=== PATIENT | male | born 1970 | race Caucasian/White ===

== ENCOUNTER 2019-12-08 11:38 | Outpatient (CLI) | payer MEDICAID, SELFPAY ==
--- NOTE | 2019-12-08 11:57 | MR_ITS ---
WS: [id number] MRI BRAIN WITH AND WITHOUT CONTRAST HISTORY: MENINGIOMA SURVEILLANCE COMPARISON: 02/08/2018 and 05/14/2015 TECHNIQUE: Multiplanar imaging performed through the brain with Prohance 17 ml's IV. No acute infarcts are seen. Clemens-white matter differentiation is well preserved. No susceptibility artifacts or prior lacunar infarcts. Ventricles and extra-axial spaces are normal. Clivus and pituitary gland are normal. Visualized posterior fossa and brainstem are also normal. Moderately enhancing dural based mass towards the RIGHT frontal vertex is again identified measuring 19 x 10 x 14 mm. Consistent with a meningioma. No significant increase in size since 02/08/2018. Since 05/14/2015 this mass has slightly increased in size. There is very slight mass effect and encroachment upon the cortex of the frontal lobe. Dural venous sinuses are normal. Paranasal sinuses: Mild mucoperiosteal thickening in the posterior RIGHT ethmoid air cells. Improved aeration in the RIGHT maxillary sinus since the most recent exam. Mastoid air cells: Normal. Calvarium and scalp: Calvarium is intact. There is a scalp mass over the posterior LEFT parietal binh on which is been previously described measuring 9 x 8 20 mm. Probably a benign hemangioma or sebaceou s cyst. MR/MR head wo/w con [id number] IMPRESSION: 1. No significant increase in size of the RIGHT posterior frontal meningioma m easuring 19 x 10 x 14 mm. There has been a slight increase in size since 05/14/19 16, prior measurements were 12 x 16 x 7 mm. 2. Improved RIGHT maxillary sinusitis.
== END 2019-12-08 11:39 | disposition home or self-care (01) ==
LOC: RADWPI 11:44
PROVIDERS: PCP Family Medicine; Visit Provider Family Medicine
DX: D32.9 Benign neoplasm of meninges, unspecified (principal)
CPT/HCPCS: 70553; A9579

== ENCOUNTER → 2019-12-24 08:41 | Outpatient (BNVA) | payer MEDICAID, SELFPAY | PROVIDERS: PCP Family Medicine; Referring Provider Family Medicine; Visit Provider Internal Medicine | DX: E10.42 Type 1 diabetes mellitus with diabetic polyneuropathy (principal); E10.649 Type 1 diabetes mellitus with hypoglycemia without coma; Z79.4 Long term (current) use of insulin; E78.2 Mixed hyperlipidemia; I10 Essential (primary) hypertension | CPT/HCPCS: 99204 ==

== ENCOUNTER 2020-01-07 13:40 | Outpatient (CLI) | payer MEDICAID, SELFPAY ==
[2020-01-07 14:46] LABS: Estmated Average Glucose 183
== END 2020-01-07 13:41 | disposition home or self-care (01) ==
LOC: LAB 13:42
PROVIDERS: PCP Family Medicine; Visit Provider Internal Medicine
DX: E10.9 Type 1 diabetes mellitus without complications (principal)
CPT/HCPCS: 36415; 83036

== ENCOUNTER → 2020-04-06 08:47 | Outpatient (BNVA) | payer MEDICAID, SELFPAY | PROVIDERS: PCP Family Medicine; Visit Provider Internal Medicine | DX: E10.42 Type 1 diabetes mellitus with diabetic polyneuropathy (principal); E10.649 Type 1 diabetes mellitus with hypoglycemia without coma; Z79.4 Long term (current) use of insulin; E66.3 Overweight; E78.2 Mixed hyperlipidemia | CPT/HCPCS: 99215 ==

== ENCOUNTER 2020-04-07 09:50 | Outpatient (CLI) | payer MEDICAID, SELFPAY ==
[2020-04-07 10:47] LABS: Chol HDL Ratio 5.81 mg/dL (1.0-5.00); Cholesterol 244 mg/dL (0-200); HDL Cholesterol 42 mg/dL (60-100); LDL Cholesterol Calculated 177 mg/dL (50-129); LDL HDL Ratio 4.21 RATIO (0.00-3.22); Triglycerides 124 mg/dL (0-150)
[2020-04-07 12:53] LABS: Estmated Average Glucose 186; Hemoglobin A1C 8.1 % (4.0-6.0)
== END 2020-04-07 09:51 | disposition home or self-care (01) ==
PROVIDERS: PCP Family Medicine; Visit Provider Internal Medicine
DX: E78.2 Mixed hyperlipidemia (principal); E10.649 Type 1 diabetes mellitus with hypoglycemia without coma
CPT/HCPCS: 36415; 80061; 83036

== ENCOUNTER → 2020-07-13 08:36 | Outpatient (BNVA) | payer MEDICAID, SELFPAY | PROVIDERS: PCP Family Medicine; Referring Provider Family Medicine; Visit Provider Orthopaedic Surgery | DX: M19.011 Primary osteoarthritis, right shoulder (principal); M25.511 Pain in right shoulder | CPT/HCPCS: 73030 ==

== ENCOUNTER → 2020-09-01 14:02 | Outpatient (BNVA) | payer MEDICAID, SELFPAY | PROVIDERS: PCP Family Medicine; Visit Provider Specialist | DX: G56.21 Lesion of ulnar nerve, right upper limb (principal); F17.200 Nicotine dependence, unspecified, uncomplicated | CPT/HCPCS: 95908 ==

== ENCOUNTER → 2020-09-07 09:00 | Outpatient (BNVA) | payer MEDICAID, SELFPAY | PROVIDERS: PCP Family Medicine; Visit Provider Family Medicine | DX: G56.21 Lesion of ulnar nerve, right upper limb (principal); R07.81 Pleurodynia; K21.9 Gastro-esophageal reflux disease without esophagitis; E03.9 Hypothyroidism, unspecified; J41.0 Simple chronic bronchitis; J44.9 Chronic obstructive pulmonary disease, unspecified; E10.649 Type 1 diabetes mellitus with hypoglycemia without coma; I10 Essential (primary) hypertension; G47.00 Insomnia, unspecified; K21.00 Gastro-esophageal reflux disease with esophagitis, without bleeding; I73.9 Peripheral vascular disease, unspecified | CPT/HCPCS: 80053; 83036; 84439; 84443; 84481; 85025 ==

== ENCOUNTER 2020-09-09 08:07 | Outpatient (CLI) | payer MEDICAID, SELFPAY ==
--- NOTE | 2020-09-09 08:15 | XRR_ITS ---
PROCEDURE INFORMATION: Exam: XR Right Ribs Exam date and time: 09/09/2020 8:15 AM Age: 50 years old Clinical indication: Chest wall pain; Right; Patient HX: PT states he is having RT posterior rib pain, shoulder pain, and RT side of neck. PT states he has a knot under the RT arm in the arm pit. PT states this has been ongoing for 1.5 years but continually getting worse. ; Additional info: R07.81 - pleurodynia TECHNIQUE: Imaging protocol: XR Right ribs. Views: 2 views. COMPARISON: CR XR chest 2V* [id number] 09/09/2020 8:31 AM FINDINGS: Bones/joints: Normal. Soft tissues: Normal. XR/XR ribs RT 2V* [id number] IMPRESSION: No acute findings.
--- NOTE | 2020-09-09 08:15 | XR_ITS ---
WS: [id number] CHEST 2 VIEWS HISTORY: R07.81 - Pleurodynia COMPARISON: None available. Lungs: Clear with no abnormality. No pleural effusion or pneumothorax. Cardiac size: Normal. Mediastinum/Aorta: Normal mediastinum. Bones: Normal. XR/XR chest 2V* [id number] IMPRESSION: Normal chest.
--- NOTE | 2020-09-09 08:15 | XRR_ITS ---
PROCEDURE INFORMATION: Exam: XR Thoracic Spine Exam date and time: 09/09/2020 8:15 AM Age: 50 years old Clinical indication: Pain in thoracic spine; Patient HX: PT states he is having RT posterior rib pain, shoulder pain, and RT side of neck. PT states he has a knot under the RT arm in the arm pit. PT states this has been ongoing for 1.5 years but continually getting worse. ; Additional info: R07.81 - pleurodynia TECHNIQUE: Imaging protocol: XR of the thoracic spine. Views: 3 views. COMPARISON: No relevant prior studies available. FINDINGS: Bones/joints: Osteopenia and degenerative change. No acute bony injury or malalignment. Soft tissues: Unremarkable appearance of the paraspinous soft tissues. XR/XR thoracic spine 3V* [id number] IMPRESSION: Osteopenia and degenerative change.
--- NOTE | 2020-09-09 08:19 | XRR_ITS ---
PROCEDURE INFORMATION: Exam: XR Cervical Spine Exam date and time: 09/09/2020 8:19 AM Age: 50 years old Clinical indication: Neck pain; Patient HX: PT states he is having RT posterior rib pain, shoulder pain, and RT side of neck. PT states he has a knot under the RT arm in the arm pit. PT states this has been ongoing for 1.5 years but continually getting worse. ; Additional info: M54.12 - radiculopathy, cervical region TECHNIQUE: Imaging protocol: XR of the cervical spine. Views: 2 or 3 views. COMPARISON: CR XR thoracic spine 3V* [id number] 09/09/2020 8:24 AM FINDINGS: Bones/joints: No spine curvature seen. There is straightening of the normal cervical lordosis, with trace retrolisthesis of C5. No fracture identified. Vertebral body heights are well maintained. There is multilevel degenerative changes, manifested by intervertebral disc space narrowing, endplate osteophytes and facet joint arthrosis, involving mainly C5-C6. Soft tissues: Unremarkable. XR/XR cervical spine 3V* [id number] IMPRESSION: 1. No acute injury. 2. Degenerative changes of the cervical spine, involving mainly C5-C6.
== END 2020-09-09 08:08 | disposition home or self-care (01) ==
PROVIDERS: PCP Family Medicine; Visit Provider Family Medicine
DX: M54.12 Radiculopathy, cervical region (principal); R07.81 Pleurodynia; M85.88 Other specified disorders of bone density and structure, other site
CPT/HCPCS: 71046; 71100; 72040; 72072

== ENCOUNTER 2020-10-06 15:23 | Outpatient (CLI) | payer MEDICAID, SELFPAY ==
--- NOTE | 2020-10-06 16:00 | MR_ITS ---
WS: [id number] MRI CERVICAL SPINE NONCONTRAST HISTORY: M54.12 - Radiculopathy, cervical region COMPARISON: None available. Technique: Multiplanar, multisequence noncontrast imaging of the cervical spine. Straightening of the normal cervical lordosis and reversal at C5. Advanced degenerative disc disease and disc space narrowing at C5-6. Otherwise mild desiccation throughout. Abnormal signal within the cervical cord at the C5-6 level. Increased T2 signal in the RIGHT and LEFT lateral aspects of the cord. Normal signal in the central cord. The abnormal signal extends over a l ength of 4 mm and a width of 5 mm in each lateral half of the cord. Craniocervical junction, C1 and C2 relationship, odontoid process and soft tissues are normal. C2-C3: Normal. C3-C4: Normal. C4-C5: Diffuse annular disc bulging with osteophytic ridging. Disc and osteophyte encroachment upon t he ventral thecal sac. More focal disc osteophyte LEFT paracentral deforming the LEFT lateral thecal sac. There is moderate central and bilateral foraminal stenosis and mild facet arthritis. C5-C6: Diffuse annular disc bulging and osteophytic ridging. Near complete effacement of CSF with sev ere central and bilateral foraminal stenosis. Exiting nerve roots are being displaced posteriorly. Mi ld facet arthritis. C6-C7: Diffuse annular disc bulging and vertebral body osteophytes. Mild central and LEFT foraminal n arrowing. C7-T1: Normal. Paraspinal soft tissue are normal. MR/MR cervical spin wo con* [id number] IMPRESSION: 1. Reversal of the normal cervical lordosis centered at C5. 2. Focal areas of myelomalacia in the lateral cervical cord at C5-6 with spari ng of the central cord. Areas of myelomalacia measure 4 x 5 mm. 3. Moderate central and bilateral foraminal stenosis at C4-5 with a more focal LEFT paracentral disc osteophyte complex. 4. Severe central and bilateral foraminal stenosis at C5-6 due to combination of osteophytes, disc disease and the vertebral body.
--- NOTE | 2020-10-06 16:45 | MR_ITS ---
WS: [id number] MRI THORACIC SPINE noncontrast. HISTORY: M54.12 - Radiculopathy, cervical region COMPARISON: None available. TECHNIQUE: Multiplanar sequences are performed in sagittal and axial planes. Normal thoracic alignment. No marrow edema or fracture. Signal within the thoracic cord is normal. Mi ld disc desiccation throughout. T1-2: Normal. T2-3: Normal. T3-4: Normal. T4-5: Normal. T5-6: Normal. T6-7: Shallow LEFT paracentral disc protrusion without cord contact. Mild facet arthritis. Very mild narrowing of the LEFT foramen. T7-8: Shallow central disc protrusion without stenosis or cord contact. T8-9: Small central disc protrusion and mild foraminal narrowing due to facet arthritis. T9-10: Mild foraminal narrowing and a central disc protrusion. Mild foraminal narrowing. T10-11: Moderate LEFT paracentral disc protrusion and facet arthritis. Mild LEFT foraminal narrowing . T11-12: Bilateral moderate facet joint arthritis encroaching into the foramen. Mild to moderate fora viktoriya narrowing. Paravertebral soft tissues are normal. MR/MR thoracic spin wo con* [id number] IMPRESSION: 1. No high-grade central or foraminal stenosis. 2. Mild to moderate bilateral foraminal stenosis at T11-12. 3. Moderate LEFT paracentral disc protrusion at T10-11. 4. Additional small disc protrusions as above without cord contact.
== END 2020-10-06 15:24 | disposition home or self-care (01) ==
LOC: RADSHAW 15:25
PROVIDERS: PCP Family Medicine; Visit Provider Family Medicine
DX: M54.12 Radiculopathy, cervical region (principal); R07.81 Pleurodynia; M48.04 Spinal stenosis, thoracic region; M51.24 Other intervertebral disc displacement, thoracic region; M48.02 Spinal stenosis, cervical region; M25.78 Osteophyte, vertebrae; G95.89 Other specified diseases of spinal cord
CPT/HCPCS: 72141; 72146

== ENCOUNTER 2020-10-12 14:04 | Outpatient (CLI) | payer MEDICAID, SELFPAY ==
--- NOTE | 2020-10-12 14:10 | CT_ITS ---
WS: [id number] LDCT LUNG CANCER SCREENING TECHNIQUE: Noncontrast CT of the chest with coronal and sagittal reformatted images. CLINICAL INFORMATION: Z12.2 - Encounter for screening for malignant neoplasm of... COMPARISON: CT 7 16,015 DLP: 60.92 mGy.cm DIvol: 1.[address] scans at [facility] use at least one of these dose optimization techniques: automat ed exposure control; mA and/or kV adjustment per patient size (includes targeted exams where dose is matched to clinical indication); or iterative reconstruction. FINDINGS: No acute pulmonary infiltrates. No focal pneumonia or pleural fluid. Slight bibasilar atelectasis. No mediastinal or hilar lymphadenopathy. Adrenal glands are normal. Splenic artery calcification. Sligh tly nodular thickening along the left fissure. Noncalcified subpleural nodule right upper lobe measur ing 3 mm. Tiny noncalcified subpleural nodule right lower lobe measuring [address]/CT lung screening [id number] IMPRESSION: LUNG-RADS: 2-Benign Appearance or Behavior FOLLOW UP: 12 Month: Continue annual screening with LDCT
== END 2020-10-12 14:05 | disposition home or self-care (01) ==
LOC: RAD 14:06
PROVIDERS: PCP Family Medicine; Visit Provider Family Medicine
DX: Z12.2 Encounter for screening for malignant neoplasm of respiratory organs (principal); Z72.0 Tobacco use; J98.11 Atelectasis; R91.1 Solitary pulmonary nodule
CPT/HCPCS: 71271

== ENCOUNTER 2020-10-29 07:27 | Outpatient (CLI) | payer MEDICAID, SELFPAY ==
[2020-10-29 07:46] VITALS: BMI 28.6
--- NOTE | 2020-10-29 07:47 | NMCV_ITS ---
NM fallon perf SPECT r/s* [id number] Ajay Dickinson Age: 50 Gender: M : 1970 Exam Date: 10/29/2020 08:42 Ordering Phys: Eliezer Jade MD ([email or web address]) Technologist: RADHA Gutierrez Exam Location: [facility] Indications: ABNORMAL HEART BEAT STRESS TEST [facility] IMAGE PROTOCOL Rest/Stress 1 Lexiscan Day Radiopharmaceutical Dose (mCi) Administration Site Administered by Rest: Tc-99m 10.9 IV RADHA Gutierrez Sestamibi Stress:Tc-99m 32.7 IV RADHA Gutierrez Sestamibi Rest: 29-Oct-2020 60 Discovery 630 Stress: 29-Oct-2020 30 Discovery 630 0.4mg Lexiscan. Images obtained in supine and prone position. SPECT RESULTS Technical Quality: Excellent Raw Data Analysis: Normal Image Corrections: No attenuation or motion correction applied Summed Stress Score: 8 Summed Rest Score: 8 Summed Difference Score: 3 PERFUSION FINDINGS Large area of fixed shelia-infarct noted in basal to distal inferior inferoseptal wall suggestive of old myocardial infarction versus scarring. FUNCTIONAL RESULTS (calculated via Gated SPECT) Stress Image LV EF (%): 49 Stress EDV (mL):138 TID: 1.11 Stress ESV (mL):70 Rest Image LV EF (%): 49 FUNCTIONAL FINDINGS: Mid to distal inferior wall akinesis IMPRESSIONS Large area of old myocardial infarction versus scarring noted in inferior and inferoseptal wall suggestive of possible lesion in the RCA territory. This study is negative for ischemia. EKG segment will be documented separately. Eliezer Jade MD (Electronically Signed) Final Date: 29 October 2020 15:20 S
--- NOTE | 2020-10-29 07:47 | ECG_ITS ---
[facility] Test Date: 2020-10-29 Pat Name: Ajay Dickinson Department: Room: Gender: Male Workshop Manager: : 1970 Requested By: Eliezer Jade Order Number: [id number] Sal MD: ELIEZER JADE Interpretive Statements NAME OF STUDY: LEXISCAN SESTAMIBI STRESS TEST INDICATION: Chest Pain, NOTE: Please note that this is the electrocardiogram portion of the Lexiscan/Sestamibi stress test. The perfusion scan will be documented separately. DATA: Baseline heart rate was 67 beats per minute. Baseline blood pressure was 131/78 millimeters of mercury. Target heart rate was 170. Maximum heart rate achieved was 95. which was 55 % of the predicted target heart rate. Maximum blood pressure was 138/78 millimeters of mercury. The reason for ending the test was completion of the protocol. The patient did not experience any symptoms. ELECTROCARDIOGRAM: BASELINE: Sinus rhythm. Normal axis. Possible old inferior wall myocardial infarction, otherwise no ST-T changes suggestive of ischemia noted. No arrhythmia noted. EXERCISE: After Lexiscan injection, no ST-T changes suggestive of ischemic noted. No arrhythmia noted. CONCLUSION: Please note due to baseline abnormality of the EKG specificity and sensitivity of the EKG portion of LexiScan MIBI stress test will be low 1. EKG not suggestive of ischemia 2. Lexiscan injection unremarkable. 3. Perfusion scan will be documented separately. Electronically Signed On 10-29-2020 15:47:07 CDT by LEIEZER JADE [id number]
[2020-10-29] MEDS: regadenoson 0.4 Mg/5 ml Syringe IVP (09:16)
[2020-10-29 09:35] VITALS: BP 128/72; PULSE 76
== END 2020-10-29 07:28 | disposition home or self-care (01) ==
LOC: CDL 07:28
PROVIDERS: PCP Family Medicine; Visit Provider Internal Medicine Cardiovascular Disease
DX: R07.9 Chest pain, unspecified (principal); R06.02 Shortness of breath; R94.39 Abnormal result of other cardiovascular function study
CPT/HCPCS: 78452; 93017; A9500; J2785

== ENCOUNTER → 2020-11-01 09:13 | Outpatient (BNVA) | payer MEDICAID, SELFPAY | PROVIDERS: PCP Family Medicine; Visit Provider Family Medicine | DX: M54.12 Radiculopathy, cervical region (principal); E03.9 Hypothyroidism, unspecified; R53.83 Other fatigue; E10.649 Type 1 diabetes mellitus with hypoglycemia without coma; Z79.4 Long term (current) use of insulin; R07.81 Pleurodynia; R53.82 Chronic fatigue, unspecified; I73.9 Peripheral vascular disease, unspecified; I25.119 Atherosclerotic heart disease of native coronary artery with unspecified angina pectoris | CPT/HCPCS: 82607; 82652; 84443; 85651; 86140; 86376; 86800 ==

== ENCOUNTER 2020-11-03 10:05 | Outpatient (CLI) | payer MEDICAID, SELFPAY ==
--- NOTE | 2020-11-03 10:11 | USCV_ITS ---
Ajay Dickinson Age: 50 Gender: M : 1970 Exam Date: 11/03/2020 10:45 Ordering Phys: Eliezer Jade MD ([email or web address]) Technologist: Freedom Urbano [place] [facility] [place]: RLE PAIN Risk Factors: Previous Vascular Surgery: Right BP: 125.00 / 70.00 Left BP: / RIGHT LEFT PSV PSV (cm/s) (cm/s) Waveform Waveform Triphasic 84.7 Subclavian Proximal Triphasic 79.2 Subclavian Distal Triphasic 87.0 Axillary Triphasic 91.7 Brachial Proximal Triphasic 81.6 Brachial Mid Triphasic 59.3 Radial Proximal Triphasic 59.8 Radial at Wrist Triphasic 118.3 Ulnar Proximal Triphasic 90.7 Ulnar at Wrist 1.0 Radial/Brachial Index FINDINGS Normal Doppler waveforms on the right side Normal Doppler flow velocities Normal resting RBI CONCLUSIONS No evidence of arterial obstruction in the arteries mentioned above Dr Hamzah Miranda MD [facility] (Electronically Signed) Final Date: 03 November 2020 23:04 S
--- NOTE | 2020-11-03 10:11 | USCV_ITS ---
Ajay Dickinson Age: 50 Gender: M : 1970 Exam Date: 11/03/2020 10:05 Ordering Phys: Eliezer Jade MD ([email or web address]) Technologist: Freedom Urbano Exam Location: [facility] [place] Indication: BLE PAIN RIGHT LEFT Brachial 121.00 mmHg Brachial 123.00 mmHg Pressure (mmHg) Waveform Pressure (mmHg) Waveform 109.00 High Thigh 126.00 107.00 Below Knee 118.00 109.00 REMOTE SENSING ANALYST 5.00 110.00 DPA 123.00 0.89 Ankle/Brachial Index 1.00 65.00 Pre-Exercise Toe Pressure 122.00 0.53 Pre-Exercise Toe/Brachial Index 0.99 FINDINGS Normal resting LENORA and TBI on the left side. Abnormal resting LENORA of 0.04 with respect to the posterior tibial artery on the left side. Slightly diminished resting LENORA and TBI on the right side. PVR waveforms showing loss of dicrotic notch bilaterally CONCLUSIONS Features of mild peripheral artery disease on the right side. Features of severe disease in the distribution of the posterior tibial artery on the left side Normal resting LENORA and TBI on the left side. Dr Hamzah Miranda MD [facility] (Electronically Signed) Final Date: 04 November 2020 15:33 S
== END 2020-11-03 10:06 | disposition home or self-care (01) ==
LOC: RAD 10:07
PROVIDERS: PCP Family Medicine; Visit Provider Internal Medicine Cardiovascular Disease
DX: I73.9 Peripheral vascular disease, unspecified (principal); M79.604 Pain in right leg; M79.605 Pain in left leg
CPT/HCPCS: 93923; 93931

== ENCOUNTER → 2020-11-08 09:19 | Outpatient (BNVA) | payer MEDICAID, SELFPAY | PROVIDERS: PCP Family Medicine; Referring Provider Family Medicine; Visit Provider Anesthesiology Pain Medicine | DX: G89.29 Other chronic pain (principal); M54.9 Dorsalgia, unspecified; M50.90 Cervical disc disorder, unspecified, unspecified cervical region; M47.812 Spondylosis without myelopathy or radiculopathy, cervical region; F17.210 Nicotine dependence, cigarettes, uncomplicated; M25.511 Pain in right shoulder; M79.601 Pain in right arm | CPT/HCPCS: 99205 ==

== ENCOUNTER 2020-11-18 12:54 | Outpatient (CLI) | payer MEDICAID, SELFPAY ==
--- NOTE | 2020-11-18 13:30 | USCV_ITS ---
Ajay Dickinson Age: 50 Gender: M : 1970 Exam Date: 11/18/2020 13:25 Ordering Phys: Eliezer Jade MD ([email or web address]) Technologist: Megan Farias [place] [facility] [place]: NECK PAIN Risk Factors: Previous Vascular Surgery: Right Brachial BP: / Left Brachial BP: / Right Left Velocity (cm/s) Spectral Plaque Velocity (cm/s) Spectral Plaque Syst/Diast Broadening Syst/Diast Broadening 141.10/24.30 Prox CCA 106.00/ 23.10 118.00/24.30 Mid CCA 103.40/ 25.60 81.20/ 19.70 Distal CCA 75.20 / 20.50 74.10/ 23.70 Prox ICA 49.70 / 17.10 77.20/ 27.50 Mid ICA 75.20 / 29.10 72.10/ 24.00 Distal ICA 62.20 / 20.50 134.00 ECA 108.10 0.55 ICA/CCA 0.71 Antegrade Vertebral Antegrade 34.80/ 11.80 cm/s 42.70/ 13.20 cm/s Tri Subclavian Tri 169.1 144.6 0 0 FINDINGS Comparison: none available. No significant elevation of systolic or diastolic velocities. Waveforms are normal. No significant amount of calcified plaque or intimal thickening identified. CONCLUSIONS Normal carotid doppler ultrasound. Dr. Linda Nathan DO (Electronically Signed) Final Date: 18 November 2020 14:30 S
== END 2020-11-18 12:55 | disposition home or self-care (01) ==
LOC: RAD 12:55
PROVIDERS: PCP Family Medicine; Visit Provider Internal Medicine Cardiovascular Disease
DX: I65.29 Occlusion and stenosis of unspecified carotid artery (principal); M54.2 Cervicalgia
CPT/HCPCS: 93880

== ENCOUNTER → 2020-12-01 08:31 | Outpatient (BNVA) | payer MEDICAID, SELFPAY | PROVIDERS: PCP Family Medicine; Referring Provider Family Medicine; Visit Provider Specialist | DX: G56.21 Lesion of ulnar nerve, right upper limb (principal); M50.00 Cervical disc disorder with myelopathy, unspecified cervical region; F17.210 Nicotine dependence, cigarettes, uncomplicated | CPT/HCPCS: 95860; 99202 ==

== ENCOUNTER → 2020-12-13 08:49 | Outpatient (BNVA) | payer MEDICAID, SELFPAY | PROVIDERS: PCP Family Medicine; Visit Provider Orthopaedic Surgery | DX: Z01.818 Encounter for other preprocedural examination (principal); Z20.822 Contact with and (suspected) exposure to COVID-19 | CPT/HCPCS: 87635 ==

== ENCOUNTER 2020-12-17 05:57 | Day surgery (SDC) | payer MEDICAID, SELFPAY ==
[2020-12-10 13:56] VITALS: BMI 27.8
--- NOTE | 2020-12-10 14:00 | ECG_ITS ---
[facility] Test Date: 2020-12-10 Pat Name: Ajay Dickinson Department: Room: Gender: Male Animal Keeper: : 1970 Requested By: Fausto Chilel Order Number: [id number] Reading MD: QUIQUE MITCHELL Measurements Intervals Jolon Rate: 72 P: 26 NV: 162 QRS: 35 QRSD: 98 T: 47 QT: 369 QTc: 405 Interpretive Statements SINUS RHYTHM INFERIOR MYOCARDIAL INFARCTION , PROBABLY OLD [40+ ms Q WAVE AND/OR ST/T ABNORMALITY IN II/aVF] No previous ECG available for comparison Electronically Signed On 12-11-2020 0:02:55 CDT by QUIQUE MITCHELL [id number]
[2020-12-10 14:21] LABS: Basophils % 0.5 %; Eosinophils # 0.4 10^3/uL (0.0-0.8); Eosinophils % 4.6 %; Hematocrit 45.9 % (42.0-52.0); Hemoglobin 15.5 g/dL (11.7-16.6); Lymphocytes # 3.1 10^3/uL (0.8-4.8); Lymphocytes % 34.8 %; Mean Corpuscular HGB Conc 33.8 g/dL (30.0-36.0); Mean Corpuscular Hemoglobin 31.1 pg (28.0-34.0); Mean Corpuscular Volume 92.2 fl (80-94); Mean Platelet Volume 9.3 fL (7.4-10.4); Monocytes # 0.6 10^3/uL (0.2-0.9); Monocytes % 7.1 %; Neutrophils # 4.63 10^3/uL (1.8-7.7); Neutrophils % 52.8 %; Nucleated Red Blood Cells % 0 %; Platelet Count 227 10^3/cmm (130-400); Red Blood Count 4.98 10^6/uL (4.1-5.3); Red Cell Distribution Width 12.6 % (12.1-15.1); White Blood Count 8.8 10^3/uL (4.0-10.0)
--- NOTE | 2020-12-10 14:28 | P.ANESASSM_ITS ---
Pre-Anesthetic Assessment Pre-Anesthetic Assessment: Height/Weight: Height 1.83 m Weight 92.986 kg Proposed Procedure: Operation Date: 12/17/20 07:00 Proposed Procedures p Anterior Cervical Discectomy & Fusion C4/5 C5/6 62976 79105 09783(x2) 18578 M54.2(Not Applicable) - Fausto See DO Social: Social History: Tobacco and No alcohol Packs per day: 1 Exam: Pre-Anes Outpt Exam: alert and oriented x 3 Airway: Submandibular: WNL Cervical ROM: WNL MP: 1 Dentition: False History/ROS: No significant history except as noted Pulmonary: Pulmonary: None reported CV/HEM: CV/HEM: None reported : : None reported Hepatic: Hepatic: None reported GI: GI: GERD Metabolic: Metabolic: DM, Hyperlipidemia and Thyroid ([place]) Neuropsych: Neuropsych: None reported Anesthetic Plan: ASA status: 3 Anesthesia: Anesthesia Evaluation and General Risk of > 500 ml blood loss (7ml/kg in children): No PFSH Anesthesia PFSH: Medical History COPD (chronic obstructive pulmonary disease) Diabetes type I GERD (gastroesophageal reflux disease) Hyperlipidemia Hypertension Hypothyroidism Meningioma PVD (peripheral vascular disease) Surgical History History of cardiac cath Family History Grandmother Diabetes Social History Alcohol intake: current Alcohol intake frequency: holidays/special occasions only Alcohol type: beer Lives independently: No Household members: spouse Housing: House Marital status: Number of children: 1 Highest education level completed: GED or Equivalent service: No Current occupational status: unemployed History of recent travel: No Data Anesthesia CBC & Chem 7: 12/10/20 14:00 12/10/20 14:00 Other Labs: Laboratory Results - last 48 hr 12/10/20 14:00 WBC 8.8 RBC 4.98 Hgb 15.5 Hct 45.9 MCV 92.2 MCH 31.1 MCHC 33.8 RDW 12.6 Plt Count 227 MPV 9.3 Neut % (Auto) 52.8 Lymph % (Auto) 34.8 [place] % (Auto) 7.1 Eos % (Auto) 4.6 Baso % (Auto) 0.5 Neut # (Auto) 4.63 Lymph # (Auto) 3.1 [place] # (Auto) 0.6 Eos # (Auto) 0.4 Baso # (Auto) 0.0 Nucleated RBC % (auto) 0 Nucleated RBCs # 0.0 Cardiac Studies: No Data to Display
[2020-12-10 14:44] LABS: Anion Gap 13.4 (5-19); Blood Urea Nitrogen 7 mg/dL (6-20); Calcium 9.1 mg/dL (8.5-10.5); Carbon Dioxide 26 mmol/L (22-29); Chloride 103 mmol/L (98-107); Glomerular Filtration Rate 142.6 mL/min (90-130); Glucose 210 mg/dL (65-115); Osmolality Calculated 290 mOsm/kg (285-295); Potassium 4.4 mmol/L (3.5-5.1); Sodium 138 mmol/L (136-145)
[2020-12-17] VITALS (16 sets, daily range): BP systolic 102–149; BP diastolic 60–92; PULSE 71–96; RESP 12–20; TEMP 36.1–37.1; O2SAT 92–99
--- NOTE | 2020-12-17 | SCC_ITS ---
Procedure Done: 1. Anterior diskectomy C5/6 2. Anterior discectomy C4/5 3. Insertion of cage C5/6 4. Insertion of Cage C4/5 5. Instrumentation with anterior plate from C4-C6 6. Use of allograft 23.8 seconds of fluoroscopic guidance, for a cumulative dose of 0.94 mGy, was provided to Dr. See by the radiology department. C-arm images of the cervical spine were saved for the patient's permanent record. IRAIDAD
--- NOTE | 2020-12-17 | XR_ITS ---
WS: [id number] C-arm fluoroscopy for anterior cervical disc fusion, 12/17/2020 Clinical Data: acdf Comparison: None. Findings: An anterior cervical disc fusion at C4-C6 with disc spacers at C4-C5 and C5-C6. XR/XR cervical spine 3V* [id number] Impression: Anterior cervical disc fusion at C4-C6.
[2020-12-17] MEDS: sodium chloride 0.9% 1,000 ML 30 ML IV (06:36)
[2020-12-17 06:38] LABS: Glucose Point of Care 187 mg/dL (70-110)
--- NOTE | 2020-12-17 06:40 | P.ANESUD_ITS ---
Pre-Anesthetic Update Pre-Anesthetic Assessment: Date of Surgery/Procedure: 12/17/20 Preop Bettye gnosis: Cervical Radiculopathy w DDD c spine Proposed Procedure: Operation Date: 12/17/20 07:15 Proposed Procedures p Anterior Cervical Discectomy & Fusion C4/5 C5/6 88500 23244 60982(x2) 54131 M54.2(Not Applicable) - Fausto H Mayi, DO Any changes to Pre-Anesthetic Assessment?: No Last Intake: Intake Last Liquid Date 12/16/20 Last Liquid Time 21:00 Last Solid Date 12/16/20 Last Solid Time 18:00 Labs Last 48hrs: Laboratory Results - last 48 hr 12/17/20 06:32 POC Glucose 187 H Vitals: Temperature 98.7 F 12/17/20 06:11 Temperature Source Temporal Artery S can 12/17/20 06:11 Pulse Rate 71 12/17/20 06:11 Pulse Rhythm 12/17/20 06:38 Respiratory Rate 16 12/17/20 06:11 Blood Pressure 149/92 12/17/20 06:11 Blood Pressure Eneida n 111 12/17/20 06:11 Pulse Oximetry 98 12/17/20 06:11 Oxygen Delivery Me thod 12/17/20 06:38 Exam: Pre-Anes Outpt Exam: alert, oriented x 3, clear to auscultation bilaterally and regular rate & rhythm Cardiac Studies: No Data to Display
--- NOTE | 2020-12-17 06:56 | W.PM.OPSUD ---
Surgery/Procedure H&P Update DATE OF PROCEDURE: December 17, 2020 DATE H&P PERFORMED: 12/07/20 H&P UPDATE INFORMATION: I have reviewed H&P completed within last 30 days, I have examined patient prior to procedure and No changes to prior documentation PREOP DIAGNOSIS: Cervical Radiculopathy w DDD c spine PLANNED PROCEDURE: Operation Date: 12/17/20 07:15 Proposed Procedures p Anterior Cervical Discectomy & Fusion C4/5 C5/6 [id number] 32739 79210(p9) 09042 V64.2(Not Applicable) - Fausto See DO
--- NOTE | 2020-12-17 09:09 | P.OP_ITS ---
Operative Report Date of procedure: December 17, 2020 Pre-op Diagnosis: cervical spondylosis with radiculopathy Post-op diagnosis: same Procedure Done: 1. Anterior diskectomy C5/6 2. Anterior discectomy C4/5 3. Insertion of cage C5/6 4. Insertion of Cage C4/5 5. Instrumentation with anterior plate from C4-C6 6. Use of allograft Surgeon: Fausto See Surgical Services Asst: Brett Del Valle Surgical Services Asst: The surgical nurse, Brett Del Valle, [place] was needed for his expertise under the microscope. He was important and necessary throughout the procedure to complete in a safe and timely manner. He assisted with patient positioning prepping and draping tissue retraction suctioning of the operative field protection of the dural sac and tissue closure Anesthesia: General Estimated blood loss (mL): 10 Condition: stable Disposition: PACU Procedure: 1. Anterior diskectomy C5/6 2. Anterior discectomy C4/5 3. Insertion of cage C5/6 4. Insertion of Cage C4/5 5. Instrumentation with anterior plate from C4-C6 6. Use of allograft The patient was taken to the operating room, where he underwent general endotracheal anesthesia without complications. He was then positioned supine on the operating table, and all areas of impingement were well padded. The arms were carefully padded and tucked at his sides. A roll was placed between the shoulder blades.. An x-ray was done to determine the appropriate level for the skin incision. The entire neck was then sterilely prepped and draped in the usual fashion. Neuromonitoring was attached prior to prepping. A transverse skin incision was made and carried down to the platysma muscle. This was then split in line with its fibers. Blunt dissection was carried down medial to the carotid sheath and lateral to the trachea and esophagus until the anterior cervical spine was visualized. A needle was placed into a disc and an x-ray was done to determine its location. The longus colli muscles were then elevated bilaterally with the electrocautery unit. Self-retaining retractors were placed deep to the longus colli muscle. Attention was brought to the level that was confirmed on x-ray. The disk space was then distracted. The microscope was then brought in. A radical anterior discectomies were performed at C4/5. This included complete removal of the anterior annulus, nucleus, and posterior annulus. The posterior longitudinal ligament was removed as were the posterior osteophytes. Foraminotomies were then accomplished bilaterally. This was done using a high speed edda, kerrison rongeurs and curretes Once all of this was accomplished, the curved currette was used to check for any residual compression. The central canal was wide open as were the foramen. A high-speed bur was used to remove the cartilaginous endplates above and below the interspace. Bleeding cancellous bone was exposed. The disc space were measured and appropriate size cage were placed sterilely onto the field. Allograft graft was packed into the cages. The cage was then placed and there was good juxtaposition against the bleeding decorticated surfaces and good distraction of each interspace. Attention was brought to the next interspace. Attention was brought to the level that was confirmed on x-ray. A caspar pin was placed into the C5 vertebrae and the C6 vertebrae. The disk space was then distracted. The microscope was then brought in. A radical anterior discectomies were performed at C5/6. This included complete removal of the anterior annulus, nucleus, and posterior annulus. The posterior longitudinal ligament was removed as were the posterior osteophytes. Foraminotomies were then accomplished bilaterally. This was done using a high speed edda, kerrison rongeurs and curretes Once all of this was accomplished, the curved currette was used to chec k for any residual compression. The central canal was wide open as were the foramen. A high-speed bur was used to remove the cartilaginous endplates above and below the interspace. Bleeding cancellous bone was exposed. The disc space were measured and appropriate size cage were placed sterilely onto the field. Allograft graft was packed into the cages. The cage was then placed and there was good juxtaposition against the bleeding decorticated surfaces and good distraction of each interspace. Attention was brought to the next interspace. The [place] pins were removed. Bone wax was used to prevent any bleeding from occurring at the pin sites. The appropriate size anterior cervical locking plate was chosen and bent into gentle lordosis. One screws were then placed into each of the vertebral bodies at C4, C5 and C6. There was excellent purchase. A final x-ray was done confirming good position of the hardware and Cages. The locking screws were then applied, also with excellent purchase. Following a final copious irrigation, there was good hemostasis and no dural leaks. The carotid pulse was strong. The wounds were then closed in layers using 2-0 Vicryl suture for the platysma muscle, 2-0 Vicryl suture for the subcutaneous tissue, and 4-0 monocryl suture in a subcuticular skin closure. Glue was placed followed by application of a sterile dressing. The drain was hooked to bulb suction. A soft collar was applied. The patient was then carefully returned to the supine position on his hospital bed where he was reversed and extubated and taken to the recovery room having tolerated the procedure well.
[2020-12-17] MEDS: fentaNYL 50 mcg/mL INJ 2mL IVP (09:36)
[2020-12-17] MEDS: HYDROmorphone 1 mg/mL INJ 1 mL 0.25 MG IVP (09:46)
[2020-12-17] MEDS: HYDROcodone-acetaminophen 5-325 mg Tablet 2 TAB PO (10:24)
[2020-12-17] MEDS: HYDROmorphone 1 mg/mL INJ 1 mL 0.5 MG IVP (11:13)
== END 2020-12-17 11:39 | disposition home or self-care (01) ==
PROVIDERS: PCP Family Medicine; Visit Provider Orthopaedic Surgery
PROC: 0RB30ZZ Excision of Cervical Vertebral Disc, Open Approach (ICD-10-PCS; CPT 22551; principal; 2020-12-17 07:15)
DX: M47.892 Other spondylosis, cervical region (principal); G56.21 Lesion of ulnar nerve, right upper limb; M50.00 Cervical disc disorder with myelopathy, unspecified cervical region; M47.22 Other spondylosis with radiculopathy, cervical region; M48.062 Spinal stenosis, lumbar region with neurogenic claudication
CPT/HCPCS: 20930; 22551; 22552; 22845; 22853; 63075; 63076; 36416; 72040; 76000; 80048; 82962; 85025; 96374; C1713; C9359; J0330; J0690; J1100; J1170; J2405; J2704; J3010; J7030; L0174

== ENCOUNTER → 2021-01-10 10:21 | Outpatient (BNVA) | payer MEDICAID, SELFPAY | PROVIDERS: PCP Family Medicine; Visit Provider Internal Medicine | DX: E10.649 Type 1 diabetes mellitus with hypoglycemia without coma (principal); E10.42 Type 1 diabetes mellitus with diabetic polyneuropathy; E03.9 Hypothyroidism, unspecified; E78.2 Mixed hyperlipidemia; E66.3 Overweight; Z79.4 Long term (current) use of insulin; Z68.27 Body mass index [BMI] 27.0-27.9, adult | CPT/HCPCS: 99214 ==

== ENCOUNTER → 2021-01-11 10:05 | Outpatient (BNVA) | payer MEDICAID, SELFPAY | PROVIDERS: PCP Family Medicine; Visit Provider Family Medicine | DX: E03.9 Hypothyroidism, unspecified (principal); I10 Essential (primary) hypertension; E10.649 Type 1 diabetes mellitus with hypoglycemia without coma; J44.9 Chronic obstructive pulmonary disease, unspecified; R42 Dizziness and giddiness; E78.2 Mixed hyperlipidemia | CPT/HCPCS: 80053; 80061; 83036; 83735; 84439; 84443; 84481; 85025 ==

== ENCOUNTER → 2021-02-01 08:21 | Outpatient (BNVA) | payer MEDICAID, SELFPAY | PROVIDERS: PCP Family Medicine; Visit Provider Orthopaedic Surgery | DX: Z48.89 Encounter for other specified surgical aftercare (principal) | CPT/HCPCS: 72040 ==

== ENCOUNTER 2021-02-15 13:40 | Outpatient (CLI) | payer MEDICAID, SELFPAY ==
--- NOTE | 2021-02-15 13:44 | XR_ITS ---
WS: [email or web address] XR tibia fibula LT 2V [id number] REASON FOR EXAM: R22.42 - Localized swelling, mass and lump, left lower limb FINDINGS: No fracture or focal bone lesion. No periosteal reaction or erosive change. No soft tissue lesion identified. XR/XR tibia fibula LT 2V [id number] IMPRESSION: No significant abnormality of the left tibia and fibula.
--- NOTE | 2021-02-15 13:44 | XR_ITS ---
WS: [email or web address] [id number] REASON FOR EXAM: R22.31 - Localized swelling, mass and lump, right upper limb FINDINGS: No fracture or focal bone lesion. No periosteal reaction or erosive change. No focal soft tissue lesion identified. XR/[place] [id number] IMPRESSION: No significant abnormality of the right humerus.
== END 2021-02-15 13:41 | disposition home or self-care (01) ==
LOC: RAD 13:42
PROVIDERS: PCP Family Medicine; Visit Provider Family Medicine
DX: R22.42 Localized swelling, mass and lump, left lower limb (principal); R22.31 Localized swelling, mass and lump, right upper limb
CPT/HCPCS: 73060; 73590

== ENCOUNTER → 2021-02-24 09:38 | Outpatient (BNVA) | payer MEDICAID, SELFPAY | PROVIDERS: PCP Family Medicine; Visit Provider Anesthesiology Pain Medicine | DX: G89.29 Other chronic pain (principal); M25.511 Pain in right shoulder; M79.601 Pain in right arm; M50.90 Cervical disc disorder, unspecified, unspecified cervical region; M47.812 Spondylosis without myelopathy or radiculopathy, cervical region; M51.17 Intervertebral disc disorders with radiculopathy, lumbosacral region; M48.02 Spinal stenosis, cervical region; M47.22 Other spondylosis with radiculopathy, cervical region; G99.2 Myelopathy in diseases classified elsewhere; Z79.891 Long term (current) use of opiate analgesic | CPT/HCPCS: 99214 ==

== ENCOUNTER → 2021-03-15 08:54 | Outpatient (BNVA) | payer MEDICAID, SELFPAY | PROVIDERS: PCP Family Medicine; Visit Provider Orthopaedic Surgery | DX: Z48.89 Encounter for other specified surgical aftercare (principal); M48.02 Spinal stenosis, cervical region; M47.22 Other spondylosis with radiculopathy, cervical region; M50.00 Cervical disc disorder with myelopathy, unspecified cervical region | CPT/HCPCS: 72040 ==

== ENCOUNTER 2021-03-22 14:41 | Outpatient (RCR) | payer MEDICAID, SELFPAY | END 2021-04-04 23:59 | disposition home or self-care (01) | LOC: SPT 14:41 | PROVIDERS: PCP Family Medicine; Referring Provider Orthopaedic Surgery; Visit Provider Orthopaedic Surgery | DX: M48.02 Spinal stenosis, cervical region (principal) | CPT/HCPCS: 97110; 97161; 97530 ==

== ENCOUNTER → 2021-03-24 09:49 | Outpatient (BNVA) | payer MEDICAID, SELFPAY | PROVIDERS: PCP Family Medicine; Visit Provider Anesthesiology Pain Medicine | DX: G89.29 Other chronic pain (principal); M48.02 Spinal stenosis, cervical region; M47.22 Other spondylosis with radiculopathy, cervical region; M50.90 Cervical disc disorder, unspecified, unspecified cervical region; M47.812 Spondylosis without myelopathy or radiculopathy, cervical region; M51.17 Intervertebral disc disorders with radiculopathy, lumbosacral region; G99.2 Myelopathy in diseases classified elsewhere; F17.210 Nicotine dependence, cigarettes, uncomplicated; Z79.891 Long term (current) use of opiate analgesic | CPT/HCPCS: 99214 ==

== ENCOUNTER 2021-04-07 15:35 | Outpatient (CLI) | payer MEDICAID, SELFPAY ==
--- NOTE | 2021-04-07 15:15 | MR_ITS ---
WS: [email or web address] MRI CERVICAL SPINE NONCONTRAST HISTORY: M48.02 - Spinal stenosis, cervical region COMPARISON: 10/06/2020 Technique: Multiplanar, multisequence noncontrast imaging of the cervical spine. Mild straightening of the normal cervical lordosis. Interval anterior cervical fusion at C4-C6. Again noted is slight increased signal within the cervical cord at C5-6 level measuring 5 mm which i s probably an area of myelomalacia. No inferior displacement of cerebellar tonsils. No fracture or ma rrow edema. Craniocervical junction, C1 and C2 relationship, odontoid process and soft tissues are normal. C2-C3: Normal. C3-C4: Normal. C4-C5: Mild osteophytic ridging. Central disc protrusion has resolved. Very minimal central and clifton inal stenosis. C5-C6: Mild osteophytic ridging. Disc and osteophyte encroachment into the thecal sac and foramina. T here is moderate to severe central and bilateral foraminal stenosis. C6-C7: LEFT asymmetric disc bulging extends into the proximal foramen is similar to the prior study. Small disc protrusion is not excluded. These findings are similar to the prior study without high-gra de stenosis. There is also small osteophyte in the LEFT foramen. C7-T1: Normal. Paraspinal soft tissue are normal. MR/MR cervical spin wo con* [id number] IMPRESSION: 1. Interval anterior cervical fusion from C4 to C6. 2. Cervical cord myelomalacia is focal at C5-C6 without progression. 3. Unchanged moderate to severe central and bilateral foraminal stenosis at C5 -6 due to disc and osteophyte disease. 4. Minimal central foraminal stenosis at C4.
== END 2021-04-07 15:36 | disposition home or self-care (01) ==
PROVIDERS: PCP Family Medicine; Visit Provider Orthopaedic Surgery
DX: M48.02 Spinal stenosis, cervical region (principal); M43.22 Fusion of spine, cervical region; G95.89 Other specified diseases of spinal cord
CPT/HCPCS: 72141

== ENCOUNTER → 2021-04-11 10:17 | Outpatient (BNVA) | payer MEDICAID, SELFPAY | PROVIDERS: PCP Family Medicine; Visit Provider Internal Medicine | DX: E10.649 Type 1 diabetes mellitus with hypoglycemia without coma (principal); E10.42 Type 1 diabetes mellitus with diabetic polyneuropathy; E78.2 Mixed hyperlipidemia; E55.9 Vitamin D deficiency, unspecified; E03.9 Hypothyroidism, unspecified; E66.3 Overweight; E65 Localized adiposity; F17.210 Nicotine dependence, cigarettes, uncomplicated; Z68.29 Body mass index [BMI] 29.0-29.9, adult; Z79.4 Long term (current) use of insulin | CPT/HCPCS: 99214 ==

== ENCOUNTER 2021-04-11 11:46 | Outpatient (CLI) | payer MEDICAID, SELFPAY ==
[2021-04-11 12:55] LABS: Estmated Average Glucose 189; Hemoglobin A1C 8.2 % (4.0-6.0)
[2021-04-11 13:27] LABS: 25 Hydroxy Vitamin D 29 ng/mL (30-100); Chol HDL Ratio 2.98 mg/dL (1.0-5.00); Cholesterol 146 mg/dL (0-200); HDL Cholesterol 49 mg/dL (60-100); LDL Cholesterol Calculated 79 mg/dL (50-129); LDL HDL Ratio 1.61 RATIO (0.00-3.22); Triglycerides 88 mg/dL (0-150)
[2021-04-11 13:59] LABS: Free T4 Free Thyroxine 1.58 ng/dL (0.82-1.77)
== END 2021-04-11 11:47 | disposition home or self-care (01) ==
PROVIDERS: PCP Family Medicine; Visit Provider Internal Medicine
DX: E10.649 Type 1 diabetes mellitus with hypoglycemia without coma (principal); E55.9 Vitamin D deficiency, unspecified; E78.2 Mixed hyperlipidemia
CPT/HCPCS: 80061; 82306; 83036; 84439; 84443

== ENCOUNTER 2021-04-12 12:54 | Outpatient (CLI) | payer MEDICAID, SELFPAY ==
--- NOTE | 2021-04-12 | MR_ITS ---
MRI for Radiation Therapy Planning. No images were submitted for evaluation. MTDD
== END 2021-04-12 12:55 | disposition home or self-care (01) ==
PROVIDERS: PCP Family Medicine; Visit Provider Family Medicine
DX: D32.0 Benign neoplasm of cerebral meninges (principal)
CPT/HCPCS: 70551

== ENCOUNTER → 2021-04-14 14:14 | Outpatient (BNVA) | payer MEDICAID, SELFPAY | PROVIDERS: PCP Family Medicine; Visit Provider Anesthesiology Pain Medicine | DX: G89.29 Other chronic pain (principal); M51.17 Intervertebral disc disorders with radiculopathy, lumbosacral region; M48.02 Spinal stenosis, cervical region; M47.22 Other spondylosis with radiculopathy, cervical region; M50.90 Cervical disc disorder, unspecified, unspecified cervical region; M47.812 Spondylosis without myelopathy or radiculopathy, cervical region; M25.511 Pain in right shoulder; M79.601 Pain in right arm; G99.2 Myelopathy in diseases classified elsewhere; F17.210 Nicotine dependence, cigarettes, uncomplicated; Z79.891 Long term (current) use of opiate analgesic | CPT/HCPCS: 99214 ==

== ENCOUNTER → 2021-04-20 15:08 | Outpatient (BNVA) | payer MEDICAID, SELFPAY | PROVIDERS: PCP Family Medicine; Visit Provider Internal Medicine | DX: I73.9 Peripheral vascular disease, unspecified (principal); I10 Essential (primary) hypertension; I25.119 Atherosclerotic heart disease of native coronary artery with unspecified angina pectoris; F17.210 Nicotine dependence, cigarettes, uncomplicated | CPT/HCPCS: 99214; 99215 ==

== ENCOUNTER 2021-04-27 10:31 | Outpatient (CLI) | payer MEDICAID, SELFPAY ==
--- NOTE | 2021-04-27 10:41 | CT_ITS ---
WS: [id number] CT ANGIOGRAPHY OF THE ABDOMINAL AORTA WITH RUNOFF TO THE ANKLES HISTORY: R68.89 - Other general symptoms and signs, right-sided leg pain at catheter. TECHNIQUE: Arterial injection is performed during imaging to evaluate the aorta and runoff vessels to the ankles. MIP and volume rendering imaging has also been performed. All images are reviewed. All C T scans at [facility] use at least one of these dose optimization techniques: automated exposu re control; mA and/or kV adjustment per patient size (includes targeted exams where dose is matched t o clinical indication); or iterative reconstruction. Contrast: Omnipaque 350; 95 mL IV. DLP: 1038.16 mGy.cm COMPARISON: 05/10/2017 Lung bases are clear. No cardiomegaly. Small hiatal hernia. Tricuspid regurgitation into hepatic vein s. Abdominal aorta: Scattered plaque and intimal thickening scattered throughout the aorta. No high-grad e stenosis. Small amount calcium in the celiac axis. Origin of the SMA is intact. 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 Renal arteries are both patent. FLORY is patent. RIGHT lower extremity arterial system: Moderate calcified plaque continues into the RIGHT common, ext ernal and internal iliac arteries. Increasing soft tissue plaque in the external iliac. Small amount of plaque in the femoral artery. The deep profunda and SFA proximally are patent. Increasing plaque a nd intimal thickening throughout the mid to distal SFA. Increasing calcification in the artery and na rrowing of the lumen extending into Justice's canal. High-grade stenosis suspected in the proximal Hun ter's canal with adjacent calcification. Multifocal areas of at least moderate stenosis throughout th e distal SFA into the popliteal artery. There is motion artifact causing blurring of the images. Mult i areas of 50% stenosis in the popliteal and tibioperoneal trunk. Below the knee is very small calibe r vessels with intermittent enhancement. There is scattered plaque causing areas of occlusion in the anterior and posterior tibial arteries and to a lesser extent the peroneal artery although flow to th e ankle is limited. LEFT lower extremity arterial system: Moderate calcified plaque through the common, internal and exte rnal iliac arteries. Femoral artery with no significant stenosis. Deep profunda and SFA proximally ar e intact. Increasing calcification in the mid to distal SFA. Multifocal areas of 50% stenosis beginni ng proximal Justice's canal. Mild atherosclerotic changes and popliteal artery. Slightly greater calib er three-vessel runoff to the ankle as compared to the RIGHT. There is scattered calcified plaque int ermittently visualized. Early phase enhancement of the liver, spleen, pancreas and gallbladder and adrenal glands and kidneys is negative for any acute process. No adenopathy or free fluid. Diffuse mild constipation. Appendix is normal. Lipoma soft tissue lateral LEFT ankle. CT/CT angio abd aorta runof [id number] IMPRESSION: 1. Mild atherosclerosis abdominal aorta with no aneurysm. 2. Increasing plaque and intimal thickening in the mid to distal SFAs bilatera lly. 3. High-grade stenosis, greater than 60% in the proximal RIGHT Justice's canal. 4. Additional multi focal areas of stenosis approximated at 50% within the dis geovani SFA and the popliteal artery, bilateral. 5. Small caliber three-vessel runoff to the ankles. Slightly greater compromis ed runoff to the RIGHT ankle with multifocal areas of stenosis and small calibe r intermittently visualized arteries.
[2021-04-27] MEDS: iohexol 350 mg/mL 100 mL Btl IV (11:44)
== END 2021-04-27 10:32 | disposition home or self-care (01) ==
LOC: RAD 10:32
PROVIDERS: PCP Family Medicine; Visit Provider Internal Medicine
DX: I73.9 Peripheral vascular disease, unspecified (principal); I25.10 Atherosclerotic heart disease of native coronary artery without angina pectoris; R68.89 Other general symptoms and signs; I70.0 Atherosclerosis of aorta
CPT/HCPCS: 75635

== ENCOUNTER 2021-04-28 06:00 | Outpatient (RCR) | payer MEDICAID, SELFPAY | END 2021-05-05 23:59 | disposition home or self-care (01) | LOC: SPT 06:00 | PROVIDERS: PCP Family Medicine; Referring Provider Orthopaedic Surgery; Visit Provider Orthopaedic Surgery | DX: M54.2 Cervicalgia (principal); G89.29 Other chronic pain | CPT/HCPCS: 97110; 97161 ==

== ENCOUNTER 2021-05-06 06:00 | Outpatient (RCR) | payer MEDICAID, SELFPAY | END 2021-06-04 23:59 | disposition home or self-care (01) | LOC: SPT 06:00 | PROVIDERS: PCP Family Medicine; Referring Provider Orthopaedic Surgery; Visit Provider Orthopaedic Surgery | DX: M54.2 Cervicalgia (principal); G89.29 Other chronic pain | CPT/HCPCS: 97110 ==

== ENCOUNTER → 2021-05-11 13:50 | Outpatient (BNVA) | payer MEDICAID, SELFPAY | PROVIDERS: PCP Family Medicine; Visit Provider Anesthesiology Pain Medicine | DX: G89.29 Other chronic pain (principal); M51.17 Intervertebral disc disorders with radiculopathy, lumbosacral region; M50.90 Cervical disc disorder, unspecified, unspecified cervical region; M47.812 Spondylosis without myelopathy or radiculopathy, cervical region; M25.511 Pain in right shoulder; M79.601 Pain in right arm; F17.210 Nicotine dependence, cigarettes, uncomplicated; Z79.891 Long term (current) use of opiate analgesic | CPT/HCPCS: 99213; 99214 ==

== ENCOUNTER 2021-05-17 13:19 | Outpatient (CLI) | payer MEDICAID, SELFPAY ==
[2021-05-17 13:43] LABS: Basophils # 0.1 10^3/uL (0.0-0.1); Basophils % 0.5 %; Eosinophils # 0.4 10^3/uL (0.0-0.8); Eosinophils % 4.5 %; Lymphocytes # 2.8 10^3/uL (0.8-4.8); Lymphocytes % 30.6 %; Mean Corpuscular HGB Conc 34.8 g/dL (30.0-36.0); Mean Corpuscular Hemoglobin 30.6 pg (28.0-34.0); Mean Platelet Volume 9.6 fL (7.4-10.4); Monocytes # 0.6 10^3/uL (0.2-0.9); Monocytes % 6.1 %; Neutrophils # 5.33 10^3/uL (1.8-7.7); Nucleated Red Blood Cells % 0 %; Platelet Count 236 10^3/cmm (130-400); Red Blood Count 5.23 10^6/uL (4.1-5.3); White Blood Count 9.2 10^3/uL (4.0-10.0)
[2021-05-17 14:08] LABS: INR 1.03 (0.83-1.21); Prothrombin Time (Patient) 13.8 Seconds (12.0-15.1)
[2021-05-17 14:32] LABS: Blood Urea Nitrogen 9 mg/dL (6-20); Calcium 9.5 mg/dL (8.5-10.5); Carbon Dioxide 24 mmol/L (22-29); Chloride 103 mmol/L (98-107); Glucose 128 mg/dL (65-115); Osmolality Calculated 284 mOsm/kg (285-295); Sodium 137 mmol/L (136-145)
[2021-05-17 14:33] LABS: Anion Gap 14.2 (5-19); Potassium 4.2 mmol/L (3.5-5.1)
== END 2021-05-17 13:20 | disposition home or self-care (01) ==
LOC: LAB 13:21
PROVIDERS: PCP Family Medicine; Visit Provider Internal Medicine
DX: Z01.812 Encounter for preprocedural laboratory examination (principal); E10.42 Type 1 diabetes mellitus with diabetic polyneuropathy; I10 Essential (primary) hypertension
CPT/HCPCS: 36415; 80048; 85025; 85610

== ENCOUNTER 2021-05-20 08:24 | Observation (INO) | payer MEDICAID, SELFPAY ==
[2021-05-20] VITALS (22 sets, daily range): BP systolic 109–140; BP diastolic 66–77; PULSE 60–83; RESP 0–22; TEMP 36.4–36.6; O2SAT 92–96; BMI 29.7
--- NOTE | 2021-05-20 06:00 | XACV_ITS ---
Ht: 183 cm Wt: 99 kg BSA: 2.27 m2 Any Known Allergies: No known allergies Gender: Male : 1970 Exam Type: Invasive Peripheral Vascular Procedure(s): Procedure Description: Peripheral Cath Diagnostic Procedure Procedure Description: Abdominal aortic angiography Procedure Description: Lower extremities' angiography Exam Priority: Routine Abdominal Diagnostic Findings Distal abdominal aorta: Patent. Lower Extremity Diagnostic Findings Right common iliac artery: Patent Right external iliac artery: Patent Right internal iliac artery: Patent Right common femoral artery: Patent Right profunda femoris: Patent Right SFA: Patent Right popliteal artery: Has 50% stenosis Right anterior tibial artery: Patent but has diffuse significant disease. TP segment is totally occluded with reconstitution via collaterals. . Left common femoral artery: Patent Left external iliac artery: Patent Left internal iliac artery: Patent Left common femoral artery: Patent Left profunda femoris: Patent Left SFA: Patent Left popliteal artery: Patent Below the knee three-vessel runoff to the foot.. INDICATION: Severe lifestyle limiting claudication. Conclusions Severe below the peripheral artery disease of the right lower extremity. Recommendations Aggressive risk factor modification. He will be initiated on Cilostazol. Smoking cessation strongly advised. Outpatient cardiology follow up in 4 weeks. Hemodynamic Data Phase:Rest AO : 149.0 / 71.0 ( 102.0 ) @ 8:56:00 AM 153.0 / 75.0 ( 107.0 ) @ 9:00:00 AM 130.0 / 84.0 ( 106.0 ) @ 9:01:00 AM Access Site Site: Left Femoral artery Sheath Size: 6 Fr Hemost... Method: Angio-Seal VIP ([facility]) Hemost... Success: Successful Procedure Details Findings Procedure Consent Obtained. Pre-Procedure Time Out. Identified patient by full name and date of as verbalized by the patient/guarantor. Does the consent match the physician's order: Yes. Accurate & Complete Informed Consent: Yes. Inpatient/Outpatient History & Physical on Chart: Yes. If H&P is completed, is and addenduem needed: No; If yes, is the addendum complete: N/A. Visualize and Verify Site with Patient/Guarantor: N/A. Relevant Radiology Images available: Yes. Pre-op teaching completed and patient verbalized understanding. The risks, benefits, and alternatives of sedation and/or procedure were discussed by physician. The patient agrees to continue. Procedure started. PERRLA. Strong, equal hand axminster weaver bilaterally. Lungs clear x 5 lobes. IV Site on Arrival: 20 gauge in the left anticubital. IV Fluids: 0.9% NaCl at KVO. 0 mL infused prior to optical laboratory mechanic. Pre Procedural Pulses: bilateral posterior tibial was Doppled. Pre Procedural Pulses: right dorsalis pedis was Doppled. Pre Procedural Pulses: left dorsalis pedis was 3+. Oxygen started at 2liters/min via nasal canula. bilateral groins was prepped with chloroprep then draped in the usual sterile fashion. Physician notified. Baseline sample Acquired. HR: 72 BPM. Physician arrived. Physician scrubbed in. Immediate Pre-Procedure Time Out. Correct Patient: Yes; Correct Procedure: Yes; Correct Site: Yes; Correct Patient Position: Yes; Correct Supplies: Yes; Dried Flammable Prep: Yes; Blood Products Available: N/A;. Lidocaine 1% infiltrated to the left groin. Arterial access obtained with micropuncture set. A 5FrFr UF catheter in over wire. Abdominal aortogram performed in AP @ 10 mL/sec for a total of 30 mL. glidewire inserted through the catheter. wire out. Right common iliac selected and arteriogram with runoff performed @ 10 mL/sec for a total of 30 mL. Right popliteal selected and arteriogram performed. catheter removed OTW. Sheath injected in Left common femoral artery and runoff performed. A Left femoral angiogram was performed to determine safe placement of closure device. A Angio-Seal VIP ([facility]) was successful obtaining hemostatsis at the Left Femoral artery insertion site. Post Procedure: Pulses reassessed and unchanged. PERRLA. Strong, equal hand axminster weaver bilaterally. No VTE prophylaxis required. Medication's Wasted: Lidocaine 1% = 1 mL. Medication's Wasted: Heparin = 1000 units. Medication's Wasted: Other = Fentanyl 50 mg. Total IV fluids: 31.6 mL. Contrast type used: Visipaque 320 mgI/mL, 500 mL bottle. Post-op diagnosis: PAD. Complications: None. Estimated blood loss: 5mL-10mL. Responsiveness - Normal response to verbal stimuli; alert and oriented, PERRLA. Airway - Unaffected, no intervention required; spontaneous ventilation. Circulation: W/N/L, pulses unchanged. Nausea/Vomiting: No. Procedure completed. Patient transferred by bed to 1st floor. Vital chart was stopped. Procedure Medications Start: 7:46 AM Stop: 7:46 AM Medication: Fentanyl Amount: 50 mcg Route: I.V. Start: 7:46 AM Stop: 7:46 AM Medication: Versed Amount: 1 mg Route: I.V. Start: 8:00 AM Stop: 8:00 AM Medication: Versed Amount: 1 mg Route: I.V. I, the attending physician, have reviewed and verified all procedure medications. Yes, all medications given per verbal order History/Risk Factors Hypertension: Yes Dyslipidemia: Yes Peripheral Arterial Disease (PAD): Yes Obesity: No Renal Disease: No Tobacco Use: Current/Recent(w/in 1 year) Prior Interventions PCI: No CABG: No Valve Surgery: No Report Signatures Finalized by Jorge Pizarro MD on 06/02/2021 11:52 AM
[2021-05-20] MEDS: diphenhydrAMINE 50 mg Capsule PO (06:23)
--- NOTE | 2021-05-20 07:44 | W.PM.OPSUD ---
Surgery/Procedure H&P Update DATE OF PROCEDURE: May 20, 2021 DATE H&P PERFORMED: 04/20/21 H&P UPDATE INFORMATION: I have reviewed H&P completed within last 30 days, I have examined patient prior to procedure and No changes to prior documentation PREOP DIAGNOSIS: Severe lifestyle limiting claudication PRIMARY INDICATION FOR PROCEDURE: Severe lifestyle limiting claudication PLANNED PROCEDURE: Operation Date: 05/20/21 07:00 Proposed Procedures p Cardiac Catheterization(Left) - Jorge Pizarro M.D Possible percutaneous coronary intervention PATIENT REASSESSED PRIOR TO SEDATION, WITH NO CHANGE NOTED: Yes PHYSICAL EXAM: alert, oriented x 3, clear to auscultation bilaterally and regular rate & rhythm AIRWAY EVAL/ANESTHESIA PLAN: ASA III, Monitored Anesthesia, Local Anesthesia, Risks, benefits & alternatives of sedation and/or procedure discussed and Patient agrees to continue as planned
== END 2021-05-20 13:51 | disposition home or self-care (01) ==
LOC: CSU 08:25
PROVIDERS: Admitting Provider Internal Medicine; PCP Family Medicine; Visit Provider Internal Medicine
DX: I73.9 Peripheral vascular disease, unspecified (principal); I10 Essential (primary) hypertension; E78.5 Hyperlipidemia, unspecified; F17.210 Nicotine dependence, cigarettes, uncomplicated; J44.9 Chronic obstructive pulmonary disease, unspecified; E10.9 Type 1 diabetes mellitus without complications; E03.9 Hypothyroidism, unspecified; Z83.3 Family history of diabetes mellitus; I25.119 Atherosclerotic heart disease of native coronary artery with unspecified angina pectoris
CPT/HCPCS: 75625; 75716; C1760; C1769; C1887; C1894; G0378; J1644; J2250; J3010; J7030; Q0163; Q9967

== ENCOUNTER → 2021-05-30 10:33 | Outpatient (BNVA) | payer MEDICAID, SELFPAY | PROVIDERS: PCP Family Medicine; Visit Provider Nurse Practitioner Family | DX: I73.9 Peripheral vascular disease, unspecified (principal); Z98.62 Peripheral vascular angioplasty status | CPT/HCPCS: 80048; 99213; 99214 ==

== ENCOUNTER 2021-06-05 06:00 | Outpatient (RCR) | payer MEDICAID, SELFPAY | END 2021-07-05 23:59 | disposition home or self-care (01) | LOC: SPT 06:00 | PROVIDERS: PCP Family Medicine; Referring Provider Orthopaedic Surgery; Visit Provider Orthopaedic Surgery | DX: M54.2 Cervicalgia (principal) | CPT/HCPCS: 97110 ==

== ENCOUNTER → 2021-06-13 09:38 | Outpatient (BNVA) | payer MEDICAID, SELFPAY | PROVIDERS: PCP Family Medicine; Referring Provider Orthopaedic Surgery; Visit Provider Specialist | DX: G62.89 Other specified polyneuropathies (principal); M50.00 Cervical disc disorder with myelopathy, unspecified cervical region; F17.210 Nicotine dependence, cigarettes, uncomplicated | CPT/HCPCS: 95910 ==

== ENCOUNTER → 2021-06-23 07:51 | Outpatient (BNVA) | payer MEDICAID, SELFPAY | PROVIDERS: PCP Family Medicine; Visit Provider Specialist | DX: M47.22 Other spondylosis with radiculopathy, cervical region (principal); E11.42 Type 2 diabetes mellitus with diabetic polyneuropathy; Z79.4 Long term (current) use of insulin | CPT/HCPCS: 99214; 99215 ==

== ENCOUNTER 2021-07-06 06:00 | Outpatient (RCR) | payer MEDICAID, SELFPAY | END 2021-08-03 23:00 | disposition home or self-care (01) | LOC: SPT 06:00 | PROVIDERS: PCP Family Medicine; Referring Provider Orthopaedic Surgery; Visit Provider Orthopaedic Surgery | DX: G89.29 Other chronic pain (principal); M54.2 Cervicalgia | CPT/HCPCS: 97110 ==

== ENCOUNTER → 2021-07-13 08:32 | Outpatient (BNVA) | payer MEDICAID, SELFPAY | PROVIDERS: PCP Family Medicine; Visit Provider Internal Medicine | DX: E10.649 Type 1 diabetes mellitus with hypoglycemia without coma (principal); E10.65 Type 1 diabetes mellitus with hyperglycemia; E10.42 Type 1 diabetes mellitus with diabetic polyneuropathy; E03.9 Hypothyroidism, unspecified; E78.5 Hyperlipidemia, unspecified; E78.2 Mixed hyperlipidemia; E66.3 Overweight; E65 Localized adiposity; E55.9 Vitamin D deficiency, unspecified; I73.9 Peripheral vascular disease, unspecified; Z79.4 Long term (current) use of insulin; Z68.29 Body mass index [BMI] 29.0-29.9, adult | CPT/HCPCS: 36415; 80061; 82306; 83036; 84439; 84443; 99214 ==

== ENCOUNTER → 2021-07-20 13:54 | Outpatient (BNVA) | payer MEDICAID, SELFPAY | PROVIDERS: PCP Family Medicine; Visit Provider Internal Medicine | DX: Z09 Encounter for follow-up examination after completed treatment for conditions other than malignant neoplasm (principal); I73.9 Peripheral vascular disease, unspecified; I10 Essential (primary) hypertension; I25.118 Atherosclerotic heart disease of native coronary artery with other forms of angina pectoris; F17.210 Nicotine dependence, cigarettes, uncomplicated | CPT/HCPCS: 99214 ==

== ENCOUNTER 2021-08-25 09:47 | Outpatient (CLI) | payer MEDICAID, SELFPAY ==
--- NOTE | 2021-08-25 09:55 | US_ITS ---
WS: [email or web address] ULTRASOUND SOFT TISSUES RIGHT upper extremity. HISTORY: NODULE IN THE RIGHT UPPER EXTREMITY COMPARISON: None available. TECHNIQUE: 2-D and color Doppler imaging is submitted. Palpable area in the mid RIGHT humerus is indicated by the patient. There is a very mildly prominent locule which appears to be related to normal fat and subcutaneous soft tissue. No definite mass ident ified. No increased vascularity. This is very isoechoic to the adjacent soft tissues. US/US soft tissue/extremity [id number] IMPRESSION: There is no discrete mass in the RIGHT upper extremity as indicated by the huy ent. This area is isoechoic to the adjacent soft tissues.
--- NOTE | 2021-08-25 10:00 | US_ITS ---
WS: [email or web address] ULTRASOUND SOFT TISSUES LEFT lateral leg. HISTORY: LEFT lower extremity. COMPARISON: None available. TECHNIQUE: 2-D and color Doppler imaging is submitted. Ultrasound directed to the palpable areas indicated by the patient. There is an ovoid predominantly h ypoechoic nodule measuring 2.7 x 1.5 cm. This nodule extends over length of 4.9 cm. This is isoechoic to the adjacent soft tissues. This may be a lipoma. There are mildly echogenic striations throughout . There is slight deformity of the adjacent fascial planes. US/US soft tissue/extremity [id number] IMPRESSION: Ovoid nodule in the LEFT laterally thigh corresponds to the palpable abnormalit y. This may be a small lipoma but is very nonspecific and nearly isoechoic to t he adjacent soft tissues.
== END 2021-08-25 09:48 | disposition home or self-care (01) ==
PROVIDERS: PCP Family Medicine; Visit Provider Family Medicine
DX: R22.31 Localized swelling, mass and lump, right upper limb (principal); R22.41 Localized swelling, mass and lump, right lower limb
CPT/HCPCS: 76882

== ENCOUNTER → 2021-09-01 08:30 | Outpatient (BNVA) | payer MEDICAID, SELFPAY | PROVIDERS: PCP Family Medicine; Referring Provider Orthopaedic Surgery; Visit Provider Specialist | DX: M75.81 Other shoulder lesions, right shoulder (principal); E11.9 Type 2 diabetes mellitus without complications; Z79.4 Long term (current) use of insulin; F17.210 Nicotine dependence, cigarettes, uncomplicated; M47.22 Other spondylosis with radiculopathy, cervical region; G56.21 Lesion of ulnar nerve, right upper limb | CPT/HCPCS: 95860; 99213 ==

== ENCOUNTER → 2021-09-08 09:04 | Outpatient (BNVA) | payer MEDICAID, SELFPAY | PROVIDERS: PCP Family Medicine; Visit Provider Orthopaedic Surgery | DX: M54.2 Cervicalgia (principal); M54.9 Dorsalgia, unspecified | CPT/HCPCS: 81000; 99213 ==

== ENCOUNTER → 2021-10-12 10:45 | Outpatient (BNVA) | payer MEDICAID, SELFPAY | PROVIDERS: PCP Family Medicine; Visit Provider Internal Medicine | DX: E10.65 Type 1 diabetes mellitus with hyperglycemia (principal); E10.649 Type 1 diabetes mellitus with hypoglycemia without coma; E10.42 Type 1 diabetes mellitus with diabetic polyneuropathy; E03.9 Hypothyroidism, unspecified; E78.5 Hyperlipidemia, unspecified; E78.2 Mixed hyperlipidemia; Z79.4 Long term (current) use of insulin; E66.3 Overweight; E65 Localized adiposity; I73.9 Peripheral vascular disease, unspecified; E55.9 Vitamin D deficiency, unspecified; Z68.29 Body mass index [BMI] 29.0-29.9, adult | CPT/HCPCS: 99214 ==

== ENCOUNTER → 2021-12-13 09:18 | Outpatient (BNVA) | payer MEDICAID, SELFPAY | PROVIDERS: PCP Family Medicine; Visit Provider Orthopaedic Surgery | DX: Z47.89 Encounter for other orthopedic aftercare (principal); Z98.1 Arthrodesis status | CPT/HCPCS: 72040; 99213 ==

== ENCOUNTER → 2021-12-20 09:09 | Outpatient (BNVA) | payer MEDICAID, SELFPAY | PROVIDERS: PCP Family Medicine; Visit Provider Specialist | DX: M54.2 Cervicalgia (principal); M75.80 Other shoulder lesions, unspecified shoulder; D32.0 Benign neoplasm of cerebral meninges; F17.210 Nicotine dependence, cigarettes, uncomplicated; Z98.890 Other specified postprocedural states | CPT/HCPCS: 96116; 99213 ==

== ENCOUNTER → 2022-01-05 14:36 | Outpatient (BNVA) | payer MEDICAID, SELFPAY | PROVIDERS: PCP Family Medicine; Visit Provider Internal Medicine | DX: E10.65 Type 1 diabetes mellitus with hyperglycemia (principal); E10.649 Type 1 diabetes mellitus with hypoglycemia without coma; E10.42 Type 1 diabetes mellitus with diabetic polyneuropathy; E55.9 Vitamin D deficiency, unspecified; E06.3 Autoimmune thyroiditis; E78.2 Mixed hyperlipidemia; E03.9 Hypothyroidism, unspecified; Z79.4 Long term (current) use of insulin; E65 Localized adiposity; I73.9 Peripheral vascular disease, unspecified; M21.969 Unspecified acquired deformity of unspecified lower leg; E66.3 Overweight; Z68.29 Body mass index [BMI] 29.0-29.9, adult | CPT/HCPCS: 80053; 80061; 82044; 83036; 84439; 84443; 99214 ==

== ENCOUNTER 2022-01-11 08:15 | Outpatient (CLI) | payer MEDICAID, SELFPAY ==
--- NOTE | 2022-01-11 08:30 | CT_ITS ---
WS: [email or web address] CT HEAD TECHNIQUE: Noncontrast CT of the head obtained from the skullbase to the vertex. CLINICAL INFORMATION: M54.2 - Cervicalgia COMPARISON: MRI April 12, 2021 and MRI 2019 DLP: 1116.[address] scans at [facility] use at least one of these dose optimization techniques: automated e xposure control; mA and/or kV adjustment per patient size (includes targeted exams where dose is matc hed to clinical indication); or iterative reconstruction. FINDINGS: No evidence of intracranial hemorrhage or mass effect. Ventricular system and basal cisterns are jules nt. Intracranial vascular calcification. Mild mucosal thickening in the ethmoid air cells. Mastoid ai r cells are well aerated. Previously described RIGHT frontal meningioma near the vertex measures 1.8 x 1.6 CM. No evidence of i ncreasing edema or mass effect. This does not appear significantly changed since 2019. No extra-axial fluid collections. Normal smith-white differentiation. CT/CT head wo con* [id number] IMPRESSION: 1. RIGHT frontal meningioma near the vertex appears stable today measuring 1.8 x 1.6 cm. This is stable by my measurements since the MRI 2019. 2. Minimal mass effect on the underlying brain parenchyma. 3. No evidence of increasing edema. 4. This would be better evaluated on future follow-up with contrast or MRI of the head. 5. No other significant findings.
== END 2022-01-11 08:16 | disposition home or self-care (01) ==
LOC: RAD 08:15
PROVIDERS: PCP Family Medicine; Visit Provider Specialist
DX: M54.2 Cervicalgia (principal); D32.0 Benign neoplasm of cerebral meninges; R41.3 Other amnesia
CPT/HCPCS: 70450

== ENCOUNTER 2022-01-23 13:48 | Outpatient (CLI) | payer MEDICAID, SELFPAY ==
--- NOTE | 2022-01-23 13:45 | CT_ITS ---
WS: [email or web address] LDCT LUNG CANCER SCREENING HISTORY: Lung Cancer screening TECHNIQUE: Axial imaging performed from the apices to 1 cm below the costophrenic angles. Coronal and sagittal reformats are submitted with axial MIP series. All CT scans at [facility] use at least one of these dose optimization techniques: automated exposure control; mA and/or kV adjustment per patient size (includes targeted exams where dose is matched to clinical indication); or iterativ e reconstruction. DLP: 79.01 mGy.cm DIvol: Mean CTDIvol: 1.60 (mGy) COMPARISON: 10/12/2020 Diagnostic quality: Satisfactory Lung Nodules: No pulmonary nodules or endobronchial lesions. 3 mm nodules along the LEFT major fissur e unchanged since 2020 and are typical for intrapulmonary lymph nodes. Lungs: No abnormality. Heart: Normal size heart. No pericardial effusion. Other findings: Mild atherosclerosis aorta. 7 mm low-attenuation nodule superior RIGHT lobe the liver . Not present on prior studies and probably represents a small hepatic cyst which is too small to justo racterize really. No adrenal mass. Splenic artery calcifications. CT/CT lung screening [id number] IMPRESSION: LUNG-RADS: 2-Benign Appearance or Behavior FOLLOW UP: 12 Month: Continue annual screening with LDCT OTHER FINDINGS (S MODIFIER): None.
== END 2022-01-23 13:49 | disposition home or self-care (01) ==
LOC: RAD 13:49
PROVIDERS: PCP Family Medicine; Visit Provider Family Medicine
DX: Z12.2 Encounter for screening for malignant neoplasm of respiratory organs (principal); F17.218 Nicotine dependence, cigarettes, with other nicotine-induced disorders
CPT/HCPCS: 71271

== ENCOUNTER → 2022-02-13 09:57 | Outpatient (BNVA) | payer MEDICAID, SELFPAY | PROVIDERS: PCP Family Medicine; Visit Provider Podiatrist Foot & Ankle Surgery | DX: I73.9 Peripheral vascular disease, unspecified (principal); E10.9 Type 1 diabetes mellitus without complications; G62.9 Polyneuropathy, unspecified; L85.3 Xerosis cutis; B35.1 Tinea unguium; Z79.4 Long term (current) use of insulin | CPT/HCPCS: 11721; 99204 ==

== ENCOUNTER → 2022-04-17 09:26 | Outpatient (BNVA) | payer MEDICAID, SELFPAY | PROVIDERS: PCP Family Medicine; Visit Provider Podiatrist Foot & Ankle Surgery | DX: E10.21 Type 1 diabetes mellitus with diabetic nephropathy (principal); Z79.4 Long term (current) use of insulin; I73.9 Peripheral vascular disease, unspecified; G62.9 Polyneuropathy, unspecified; L85.3 Xerosis cutis; B35.1 Tinea unguium | CPT/HCPCS: 11721 ==

== ENCOUNTER → 2022-04-19 12:56 | Outpatient (BNVA) | payer MEDICAID, SELFPAY | PROVIDERS: PCP Family Medicine; Visit Provider Nurse Practitioner Family | DX: I73.9 Peripheral vascular disease, unspecified (principal); I25.119 Atherosclerotic heart disease of native coronary artery with unspecified angina pectoris; I77.9 Disorder of arteries and arterioles, unspecified; I10 Essential (primary) hypertension; F17.210 Nicotine dependence, cigarettes, uncomplicated | CPT/HCPCS: 99214 ==

== ENCOUNTER 2022-05-05 09:05 | Outpatient (CLI) | payer MEDICAID, SELFPAY ==
[2022-05-05 09:48] LABS: Estmated Average Glucose 189; Hemoglobin A1C 8.2 % (4.0-6.0)
[2022-05-05 09:56] LABS: Alanine Aminotransferase 15 U/L (0-41); Albumin Level 4.4 g/dL (3.5-5.2); Alkaline Phosphatase 81 U/L (40-130); Anion Gap 15.6 (5-19); Aspartate Amino Transferase 13 U/L (0-40); Blood Urea Nitrogen 10 mg/dL (6-20); Calcium 9.3 mg/dL (8.5-10.5); Carbon Dioxide 25 mmol/L (22-29); Chloride 103 mmol/L (98-107); Chol HDL Ratio 3.64 mg/dL (1.0-5.00); Cholesterol 160 mg/dL (0-200); Free T4 Free Thyroxine 1.29 ng/dL (0.82-1.77); Globulin 2.4 g/dL (1.3-4.6); Glomerular Filtration Rate 88.6 mL/min (90-130); Glucose 167 mg/dL (65-115); HDL Cholesterol 44 mg/dL (60-100); LDL Cholesterol Calculated 96 mg/dL (50-129); LDL HDL Ratio 2.18 RATIO (0.00-3.22); Osmolality Calculated 291 mOsm/kg (285-295); Potassium 4.6 mmol/L (3.5-5.1); Sodium 139 mmol/L (136-145); Thyroid Stimulating Hormone 23.41 uIU/mL (0.27-4.20); Total Bilirubin 0.4 mg/dL (0.15-1.2); Total Protein 6.8 g/dL (6.6-8.7); Triglycerides 101 mg/dL (0-150)
[2022-05-05 10:29] LABS: 25 Hydroxy Vitamin D 14 ng/mL (30-100)
== END 2022-05-05 09:06 | disposition home or self-care (01) ==
PROVIDERS: PCP Family Medicine; Visit Provider Internal Medicine
DX: E06.3 Autoimmune thyroiditis (principal); E10.65 Type 1 diabetes mellitus with hyperglycemia; E55.9 Vitamin D deficiency, unspecified; E66.3 Overweight
CPT/HCPCS: 36415; 80053; 80061; 82306; 83036; 84439; 84443

== ENCOUNTER → 2022-05-16 14:10 | Outpatient (BNVA) | payer MEDICAID, SELFPAY | PROVIDERS: PCP Family Medicine; Visit Provider Internal Medicine | DX: E10.42 Type 1 diabetes mellitus with diabetic polyneuropathy (principal); E10.65 Type 1 diabetes mellitus with hyperglycemia; E10.649 Type 1 diabetes mellitus with hypoglycemia without coma; E66.3 Overweight; E55.9 Vitamin D deficiency, unspecified; E06.3 Autoimmune thyroiditis; E78.2 Mixed hyperlipidemia; E03.9 Hypothyroidism, unspecified; E65 Localized adiposity; I73.9 Peripheral vascular disease, unspecified; Z79.4 Long term (current) use of insulin; Z68.29 Body mass index [BMI] 29.0-29.9, adult; Z79.890 Hormone replacement therapy | CPT/HCPCS: 99214 ==

== ENCOUNTER 2022-05-20 08:40 | Outpatient (CLI) | payer MEDICAID, SELFPAY ==
--- NOTE | 2022-05-20 08:45 | MR_ITS ---
WS: [email or web address] MRI HEAD WITHOUT CONTRAST TECHNIQUE: Sagittal T1, T2 axial, T2 axial FLAIR, axial and coronal T1 images, axial susceptibility w eighted imaging, axial diffusion weighted images, and coronal T2 images were obtained. CLINICAL INFORMATION: cerebral meningioma COMPARISON: MRI April 12, 2021, CT January 11, 2022 and MRI December 08, 2019 FINDINGS: No evidence of restricted diffusion to suggest acute ischemia. Ventricular system and basal cisterns are patent. Minimal small vessel changes. Moderate parenchymal volume loss. Normal posterior fossa. N ormal vascular flow voids at the skull base. Paranasal sinuses are well aerated. Mild mucosal thicken ing in the RIGHT greater than LEFT mastoid air cells. Normal posterior nasopharynx. No hemosiderin on susceptibly weighted images. Normal optic chiasm and pituitary infundibulum. Mild s ymmetric atrophy temporal lobes and hippocampal formations. RIGHT frontal meningioma at the vertex ap pears unchanged compared to December 08, 2019. This measures approximately 1.8 x 1.5 x 1.0 cm no sign ificant change. No underlying edema. No other significant interval changes. MR/MR head wo con* [id number] IMPRESSION: 1. RIGHT frontal meningioma at the vertex appears unchanged measuring 1.8 x 1. 5 x 1.0 cm AP by transverse by craniocaudal. 2. No underlying edema or mass effect. 3. Mild mucosal thickening in the mastoid air cells bilaterally. 4. Mild small vessel changes with moderate parenchymal volume loss.
== END 2022-05-20 08:41 | disposition home or self-care (01) ==
LOC: RAD 08:42
PROVIDERS: PCP Family Medicine; Visit Provider Family Medicine
DX: D32.0 Benign neoplasm of cerebral meninges (principal); R41.3 Other amnesia
CPT/HCPCS: 70551

== ENCOUNTER → 2022-06-21 15:32 | Outpatient (BNVA) | payer MEDICAID, SELFPAY | PROVIDERS: PCP Family Medicine; Visit Provider Specialist | DX: D32.0 Benign neoplasm of cerebral meninges (principal); M47.812 Spondylosis without myelopathy or radiculopathy, cervical region; F17.210 Nicotine dependence, cigarettes, uncomplicated; Z98.1 Arthrodesis status | CPT/HCPCS: 99214 ==

== ENCOUNTER → 2022-06-26 14:22 | Outpatient (BNVA) | payer MEDICAID, SELFPAY | PROVIDERS: PCP Family Medicine; Visit Provider Podiatrist Foot & Ankle Surgery | DX: I73.9 Peripheral vascular disease, unspecified (principal); E10.42 Type 1 diabetes mellitus with diabetic polyneuropathy; Z79.4 Long term (current) use of insulin; G62.9 Polyneuropathy, unspecified; L85.3 Xerosis cutis; B35.1 Tinea unguium | CPT/HCPCS: 11721 ==

== ENCOUNTER → 2022-07-18 10:30 | Outpatient (BNVA) | payer MEDICAID, SELFPAY | PROVIDERS: PCP Family Medicine; Visit Provider Registered Nurse Neonatal Intensive Care | DX: M54.50 Low back pain, unspecified (principal); N12 Tubulo-interstitial nephritis, not specified as acute or chronic; R39.9 Unspecified symptoms and signs involving the genitourinary system | CPT/HCPCS: 81000; 87086 ==

== ENCOUNTER → 2022-09-11 13:37 | Outpatient (BNVA) | payer MEDICAID, SELFPAY | PROVIDERS: PCP Family Medicine; Visit Provider Internal Medicine | DX: E10.9 Type 1 diabetes mellitus without complications (principal); E66.3 Overweight; E55.9 Vitamin D deficiency, unspecified; E06.3 Autoimmune thyroiditis; E78.2 Mixed hyperlipidemia; E03.9 Hypothyroidism, unspecified; Z79.4 Long term (current) use of insulin; E65 Localized adiposity; I73.9 Peripheral vascular disease, unspecified; Z68.27 Body mass index [BMI] 27.0-27.9, adult | CPT/HCPCS: 36415; 80053; 80061; 82044; 83036; 84439; 84443; 99214 ==

== ENCOUNTER → 2023-06-25 09:02 | Outpatient (BNVA) | payer OTHER, SELFPAY | PROVIDERS: PCP Family Medicine; Visit Provider Internal Medicine | DX: E10.42 Type 1 diabetes mellitus with diabetic polyneuropathy (principal); E10.649 Type 1 diabetes mellitus with hypoglycemia without coma; E66.3 Overweight; E55.9 Vitamin D deficiency, unspecified; E06.3 Autoimmune thyroiditis; E78.2 Mixed hyperlipidemia; E03.9 Hypothyroidism, unspecified; Z79.4 Long term (current) use of insulin; E11.649 Type 2 diabetes mellitus with hypoglycemia without coma; E65 Localized adiposity; I73.9 Peripheral vascular disease, unspecified; M21.969 Unspecified acquired deformity of unspecified lower leg | CPT/HCPCS: 36415; 80053; 80061; 82044; 83036; 84439; 84443 ==